=== PATIENT | male | born 1995 | race Caucasian/White ===

== ENCOUNTER 2017-02-08 10:12 | Outpatient (CLI) | payer OTHER ==
[2014-10-24 19:57] VITALS: BP 110/53
== END 2017-02-08 10:13 ==
LOC: LABRHC 10:12
PROVIDERS: ATTEND Physician Assistant
DX: J06.9 Acute upper respiratory infection, unspecified (principal); B97.89 Other viral agents as the cause of diseases classified elsewhere
CPT/HCPCS: 87070

== ENCOUNTER 2019-04-03 11:52 | Outpatient (CLI) | payer OTHER ==
[2014-10-24 19:57] VITALS: BP 110/53
[2019-04-03] MEDS ORDERED: ONDANSETRON HCL/PF 4 MG/ 2ML VIAL ONE (12:03)
[2019-04-03] MEDS ORDERED: 0.9 % SODIUM CHLORIDE 1,000 ML IV ONE ×2 (12:03→12:13)
== END 2019-04-03 14:45 | disposition home or self-care (01) ==
LOC: INF 11:52
PROVIDERS: ATTEND Family Medicine
DX: E86.0 Dehydration (principal)
CPT/HCPCS: 96360; 96361; J2405; J7030